=== PATIENT | female | born 1950 | race Caucasian/White ===

== ENCOUNTER 2019-04-05 10:36 | Emergency (ER) | payer MEDICARE, BC ==
[2019-04-05] MEDS: traMADol 50 MG TAB PO (11:42)
== END 2019-04-05 13:00 | disposition home or self-care (01) ==
LOC: FTE 10:36
DX: S99.101A Unspecified physeal fracture of right metatarsal, initial encounter for closed fracture (principal); S99.102A Unspecified physeal fracture of left metatarsal, initial encounter for closed fracture; W01.0XXA Fall on same level from slipping, tripping and stumbling without subsequent striking against object, initial encounter; Y92.9 Unspecified place or not applicable
CPT/HCPCS: 73630; 73630-LT; 99284-25